=== PATIENT | male | born 1950 | race Caucasian/White ===

== ENCOUNTER → 2021-11-21 06:51 | Outpatient (CLI) | payer MEDICARE, OTHER, SELFPAY ==
--- NOTE | 2021-11-21 06:54 | DI.MRI.S_ITS ---
PROCEDURE: MR PELIS WO/W CON INDICATIONS: Prostate abnormality TECHNIQUE: Coronal HASTE, axial T1 FSE with fat saturation, 3-plane nonbreath-hold T2 FSE. After the administration of contrast, dynamic axial, delayed axial and coronal VIBE or 2-D FLASH with fat saturation through the pelvis. Optional diffusion weighted imaging and ADC may be performed. COMPARISON: None. FINDINGS: Image quality: Diffusion weighted and dynamic contrast enhanced images are diagnostic. Prostate: Gland size is 5.6 x 4.7 x 4.5 cm; ellipsoid gland volume is 62 mL. Lesion size(s): Lesion 1: 1.1 cm in axial plane. Lesion 2: 0.6 cm in axial plane. Lesion location(s) (sector): Lesion 1: Right posteromedial peripheral zone at the mid gland level. Lesion 2: Left posterior transition zone at the mid gland level. Lesion description: Lesion 1: Wedge-shaped defined hypointensity. No bulge of the posterior capsular margin. Lesion 2: Rounded non circumscribed lesion within a BPH nodule. T2 weighted imaging (T2WI) morphology score: Lesion 1: Two Lesion 2: Two Diffusion weighted imaging (DWI) morphology score: Lesion 1: Three Lesion 2: Three Dynamic contrast enhancement (DCE): Lesion 1: Absent Lesion 2: Absent Lesion PI-RADS score: Lesion 1: PI-RADS three Lesion 2: PI-RADS two Genitourinary system: Bladder wall thickness is normal. Distal ureters are non distended. Bowel and peritoneum: No pathologic free fluid. There is moderate diverticulosis of the distal descending and proximal sigmoid colon. Other pelvic bowel loops appear normal. Nodes and vessels: No pelvic or inguinal adenopathy by size criteria. Iliac vessels are normal in caliber. Soft tissues: No inguinal hernias. Bones: Marrow demonstrates normal overall signal, without lesions to suggest metastases. IMPRESSION: 1. PI-RADS two and PI-RADS three lesions in a mildly enlarged prostate gland as described. Dictated by: Thu Whitfield M.D. on 11/21/2021 at 15:01 Approved by: Thu Whitfield M.D. on 11/21/2021 at 15:05
== END ==
PROVIDERS: PCP Family Medicine; Referring Provider Specialist; Visit Provider Specialist
DX: N40.1 Benign prostatic hyperplasia with lower urinary tract symptoms (principal); N13.8 Other obstructive and reflux uropathy; E29.1 Testicular hypofunction; R97.20 Elevated prostate specific antigen [PSA]
CPT/HCPCS: 72197